=== PATIENT | female | born 1950 | race Caucasian/White ===

== ENCOUNTER 2016-11-08 19:37 | Emergency (ER) | payer OTHER ==
[~2016-11-08] VITALS: Ht 170.2 cm; Wt 110.2 kg
[2016-11-08 19:40] VITALS: BP 149/86
== END 2016-11-08 20:46 | disposition home or self-care (01) ==
LOC: ED 20:40
DX: R05 Cough (principal); J00 Acute nasopharyngitis [common cold]; M06.9 Rheumatoid arthritis, unspecified
CPT/HCPCS: 99283